=== PATIENT | female | born 1965 | race Caucasian/White ===

== ENCOUNTER → 2018-01-27 | Outpatient (CLI) | payer OTHER | END | disposition home or self-care (01) | LOC: US 14:00 | DX: N93.8 Other specified abnormal uterine and vaginal bleeding (principal) | CPT/HCPCS: 76830; 76856 ==

== ENCOUNTER 2018-02-22 07:48 | Outpatient (CLI) | payer OTHER ==
[~2018-02-22 07:48] MED LIST: IODIXANOL 320 MG/ML 100 ML VIAL.; LIDOCAINE 2% 20 ML VIAL.
[2018-02-22 09:00] LABS: HEMATOCRIT 34.1 % (36.0-47.0); HEMOGLOBIN 10.9 g/dL (12.0-15.5); MEAN CORPUSCULAR HEMOGLOBIN 26 pg (25-35); MEAN CORPUSCULAR HGB CONC 32 g/dL (31-37); MEAN CORPUSCULAR VOLUME 80 fL (79-100); PLATELET COUNT 151 x10^3/uL (140-400); RED BLOOD COUNT 4.27 x10^6/uL (3.50-5.40); RED CELL DISTRIBUTION WIDTH 34.1 % (11.5-14.5)
[2018-02-22 09:08] LABS: ANION GAP 7 (6-14); BLOOD UREA NITROGEN 18 mg/dL (7-20); CALCIUM 9.2 mg/dL (8.5-10.1); CARBON DIOXIDE 30 mmol/L (21-32); CHLORIDE 101 mmol/L (98-107); CREATININE 0.8 mg/dL (0.6-1.0); GFR 75.6; GLUCOSE 136 mg/dL (70-99); POTASSIUM 3.7 mmol/L (3.5-5.1); SODIUM 138 mmol/L (136-145)
[2018-02-22 09:12] LABS: INR 1.1 (0.8-1.1); PARTIAL THROMBOPLASTIN TIME 29 SEC (24-38); PROTHROMBIN TIME PATIENT 13.6 SEC (11.7-14.0)
[2018-02-22] MEDS ORDERED: NITROGLYCERIN 200 MCG/2 ML SYRINGE FOR CATH/VASC LAB. (10:00)
[2018-02-22] MEDS ORDERED: fentaNYL PF VIAL 100 MCG/2 ML VIAL (10:00)
[2018-02-22] MEDS ORDERED: MIDAZOLAM HCL/PF 2 MG/2 ML VIAL. (10:00)
[2018-02-22] MEDS ORDERED: HEPARIN for IV BOLUS 10,000 UNIT/10 ML VIAL. (10:00)
[2018-02-22] MEDS ORDERED: VERAPAMIL 5 MG/2 ML VIAL. (10:00)
[2018-02-22] MEDS ORDERED: CONTRAST GIVEN. MC (10:30)
[2018-02-22] MEDS: NITROGLYCERIN 200 MCG/2 ML SYRINGE FOR CATH/VASC LAB. IART (10:34)
[2018-02-22] MEDS: VERAPAMIL 5 MG/2 ML VIAL. IART (10:39)
[2018-02-22] MEDS: LIDOCAINE 2% 20 ML VIAL. IJ (10:40)
[2018-02-22] MEDS: IODIXANOL 320 MG/ML 100 ML VIAL. IART (10:40)
[2018-02-22] MEDS: HEPARIN for IV BOLUS 10,000 UNIT/10 ML VIAL. IART (10:43)
[2018-02-22] MEDS ORDERED: IV 1/2 NORMAL SALINE 1,000 ML IV (11:03)
[2018-02-22] MEDS ORDERED: ACETAMINOPHEN 325 MG TABLET. PO ×2 (12:29→12:45)
[2018-02-22] MEDS ORDERED: ACETAMINOPHEN 500 MG TABLET PO (12:30)
[2018-02-22] MEDS: ACETAMINOPHEN 325 MG TABLET. PO (12:35)
== END 2018-02-22 13:11 | disposition home or self-care (01) ==
LOC: CCL 07:48
DX: I42.9 Cardiomyopathy, unspecified (principal); Z88.2 Allergy status to sulfonamides; Z88.8 Allergy status to other drugs, medicaments and biological substances; I10 Essential (primary) hypertension; E11.9 Type 2 diabetes mellitus without complications; Z79.84 Long term (current) use of oral hypoglycemic drugs; Z79.899 Other long term (current) drug therapy; Z79.01 Long term (current) use of anticoagulants; Z82.49 Family history of ischemic heart disease and other diseases of the circulatory system
CPT/HCPCS: 36415; 80048; 85027; 85610; 85730; 93458; 99152; 99153; C1769; C1892; J1644; J2001; J3490

== ENCOUNTER → 2018-06-23 | Outpatient (CLI) | payer OTHER ==
[2018-02-22 12:20] VITALS: BP 150/73
[~2018-06-23] MED LIST changes: +ASPI-630 PO; +ATOR40TA59 PO; +CARV6.252 PO; +FERR325T14 PO; +FURO40TA4 PO; +GUAI600T79 PO; +HUM100VI SQ; +INSU100I13 SQ; -IODIXANOL 320 MG/ML 100 ML VIAL.; +ISOS30TA4 PO; -LIDOCAINE 2% 20 ML VIAL.; +LOSA100T7 PO; +METF500T16 PO; +SPIR25TA5 PO
--- NOTE | 2018-06-23 10:47 | CARD ---
MR#: [id number] Date of Study: 06/23/2018 Ordering Physician: SANDY MELO, Referring Physician: SANDY MELO Tech: Marleni Ortiz RDCS APPROVED REPORT EXAM: Two-dimensional and M-mode echocardiogram with Doppler and color Doppler. Other Information Quality : Good INDICATION Cardiomyopathy 2D DIMENSIONS Left Atrium(2D)3.9 (1.6-4.0cm)IVSd1.1 (0.7-1.1cm) Aortic Root(2D)2.8 (2.0-3.7cm)LVDd5.7 (3.9-5.9cm) LVOT Diameter2.1 (1.8-2.4cm)PWd1.1 (0.7-1.1cm) LVDs4.1 (2.5-4.0cm)FS (%) 27.8 % SV84.7 ml Aortic Valve AoV Peak Lauro.133.8cm/sAoV VTI33.1cm AO Peak GR.7.2mmHgLVOT Peak Lauro.92.3cm/s LVOT VTI 24.78cmAO Mean GR.4mmHg ALECIA (VMAX)2.52mk0FIF (VTI)2.66cm2 Mitral Valve MV E Pkgzlezw42.6cm/sMV DECEL OZIO012td MV A Jbusziee00.8cm/sMV TGV26nk E/A Ratio0.8MVA (PHT)3.09cm2 TDI E/Lateral E'8.8E/Medial E'10.2 Tricuspid Valve TR P. Mrqgiqum535ip/sRAP HJWOSUEN4taSt TR Peak Gr.55mrEeGSNW83zlUf Pulmonary Vein S1 Lhwvyyap48.3cm/sD2 Eojelouy92.4cm/s LEFT VENTRICLE The Left Ventricle is borderline dilated. There is normal left ventricular wall thickness. Left ventr icle systolic function is low normal. The Ejection Fraction is estimated at 50%. There is normal LV s egmental wall motion. Transmitral Doppler flow pattern is Grade I-abnormal relaxation pattern. RIGHT VENTRICLE The right ventricle is normal size. The right ventricular systolic function is normal. ATRIA The left atrium size is normal. The right atrium size is normal. The interatrial septum is intact wit h no evidence for an atrial septal defect or patent foramen ovale as noted on 2-D or Doppler imaging. AORTIC VALVE The aortic valve is calcified but opens well. Doppler and Color Flow revealed no significant aortic r egurgitation. There is no significant aortic valvular stenosis. MITRAL VALVE The mitral valve is calcified but opens well. There is no evidence of mitral valve prolapse. There is no mitral valve stenosis. Doppler and Color Flow revealed no mitral valve regurgitation noted. TRICUSPID VALVE The tricuspid valve is normal in structure and function. Doppler and Color Flow revealed trace tricus pid regurgitation. The PA pressure was estimated at 20 mmHg. There is no tricuspid valve stenosis. PULMONIC VALVE The pulmonic valve is not well visualized. Doppler and Color Flow revealed trace pulmonic valvular re gurgitation. There is no pulmonic valvular stenosis. GREAT VESSELS The aortic root is normal in size. The ascending aorta is normal in size. The IVC is normal in size a nd collapses >50% with inspiration. PERICARDIAL EFFUSION There is no evidence of significant pericardial effusion. Critical Notification Critical Value: No <Conclusion> The Left Ventricle is borderline dilated. Left ventricle systolic function is low normal. The Ejection Fraction is estimated at 50%. There is no significant aortic valvular stenosis. Doppler and Color Flow revealed no significant aortic regurgitation. Doppler and Color Flow revealed no mitral valve regurgitation noted. Doppler and Color Flow revealed trace tricuspid regurgitation. The PA pressure was estimated at 20 mmHg. Signed by : Chuckie Mccarthy MD Electronically Approved : 06/23/2018 10:46:03
== END | disposition home or self-care (01) ==
LOC: ECHO 09:32
PROVIDERS: ATTEND Internal Medicine Cardiovascular Disease
DX: I42.9 Cardiomyopathy, unspecified (principal)
CPT/HCPCS: 93306